=== PATIENT | female | born 1990 | race Caucasian/White ===

== ENCOUNTER 2020-09-19 05:18 | Emergency (ER) | payer MEDICAID, SELFPAY ==
--- NOTE | 2020-09-19 05:20 | CT_ITS ---
STUDY: CT BRAIN WITHOUT CONTRAST REASON FOR EXAM: Female, 30 years old. ? SEIZURE LIKE ACTIVITY, anxiety, making strange faces. RADIATION DOSAGE (If Supplied By Facility): CTDIvol = ( 44.99 ) mGy, DLP = ( 779.24 ) mGycm TECHNIQUE: Transaxial CT imaging of the brain was performed without administration of intravenous contrast material. Individualized dose optimization techniques were used for this CT. COMPARISON: No relevant priors. FINDINGS: Normal soft tissue structures. Normal calvarium. Normal size ventricles and extra-axial spaces for the patient''s age. Normal white matter tracts of the cerebral hemispheres. Normal basal ganglia and thalami. Normal brainstem. Normal cerebellum. There is no intracranial hemorrhage. There are no findings of an acute ischemic infarction. There is mucoperiosteal inflammatory disease of the paranasal sinuses consistent with moderate chronic bilateral maxillary sinusitis. CT/Brain/Head without Contrast IMPRESSION: No acute intracranial abnormality. Electronically Signed: Tatiana Jean MD at 6:28 EST Tel , Service support ,
[2020-09-19 05:23] VITALS: BP 120/96; PULSE 135; RESP 26; TEMP 37; O2SAT 99; BMI 24.1
--- NOTE | 2020-09-19 05:23 | ED.DCSUM_ITS ---
History of Present Illness Chief Complaint: Anxiety Informant: Patient Onset: Weeks Context: Gradual Onset Timing: Intermittent Current Severity: Moderate Maximum Severity: Moderate Narrative: The patient is a 23-year-old female medical history significant for homocystinuria status post nephrectomy who presents to the emergency department concerned she may be having seizures. The patient states she has been under a lot of stress lately. She states for the past year, she has had these episodes with stress were she has been told she may be having seizures. She states that she has blown it off until tonight. She is currently at the [employer]. Her witnessed her leg shaking and she was making strange faces. There was no tonic-clonic motion. She had no tongue biting or urinary incontinence. Patient does states she has a history of prior drug abuse. She states she has been clean for about 3 months. There is a family history of seizure. She has never been evaluated by neurology. Prior similar symptoms: Yes Recent Illness/Hospitalization: No Past Medical History - Allergies and Home Meds Allergies/Adverse Reactions: Allergies citalopram [From Celexa] Allergy (Verified 09/19/20 05:22) Shortness of breath promethazine [From Phenergan] Allergy (Verified 09/19/20 05:22) NEEDS FOLLOW-UP tamsulosin [From Flomax] Allergy (Verified 09/19/20 05:22) Hives ciprofloxacin Adverse Reaction (Verified 09/19/20 05:22) Rash IV FORM TAPE Allergy (Uncoded 09/19/20 05:22) Hives Primary Care Physician: Care Physician,No Primary [Primary Care Provider] - Prior records reviewed: Yes Past Medical History: - - Homocystinuria Surgical History: - - Nephrectomy Review of Systems General: Denies: Chills, Fever, Sweats Eyes: Denies: Visual changes - bilaterally, Diplopia ENT: Denies: Rhinorrhea, Sore throat Cardiovascular: Denies: Chest pain, Palpitations Respiratory: Denies: Dyspnea, Cough, Dyspnea on exertion Gastrointestinal: Denies: Abdominal pain, Nausea, Vomiting, Diarrhea, Melena, Hematochezia Genitourinary: Denies: Dysuria, Hematuria, Frequency Musculoskeletal: Denies: Back pain, Extremity Pain Skin: Denies: Rash, Wounds Neurological: Denies: Headache, Weakness, Numbness Physical Exam Inital Vital Signs reviewed: Yes General: Well nourished, Well developed, No Acute Distress Head: Normocephalic, Atraumatic Eyes: Perrl, EOMI ENT: Moist mucous membranes, No rhinorrhea Neck: Supple, Nontender Cardiovascular: Regular rate, Regular rhythm, No murmurs Respiratory: No distress, CTA bilaterally, Chest nontender Abdomen: Soft, Nontender, Nondistended, Normal bowel sounds Back: Nontender, Normal Inspection Extremities: Nontender, No edema Skin: Normal color, No rash Neurological: Alert, Oriented x3, Cranial nerves II-XII grossly intact, Normal Strength, Normal Sensation Psychological: Normal affect, Normal Mood Diagnostic/Tx/Re-eval Abnormal Lab Results 09/19/20 09/19/20 09/19/20 05:40 05:40 05:40 WBC 11.5 H RBC 4.49 Hgb 13.6 Hct 42.7 MCV 95.1 MCH 30.3 MCHC 31.9 L RDW Std Deviation 45.2 H RDW Coeff of Dinorah 12.9 Plt Count 231 MPV 10.1 Immature Gran % (Auto) 0.300 Neut % (Auto) 59.7 Lymph % (Auto) 28.4 [place] % (Auto) 9.2 Eos % (Auto) 2.1 Baso % (Auto) 0.3 Absolute Neuts (auto) 6.9 Absolute Lymphs (auto) 3.26 Nucleated RBC % 0 Sodium 140 Potassium 3.5 Chloride 106 Carbon Dioxide 30.0 Anion Gap 4 L BUN 15 Creatinine 1.00 Estim Creat Clear Calc 79.99 Est GFR (MDRD) Af Amer 88 Est GFR (MDRD) Non-Af 73 BUN/Creatinine Ratio 15.0 Glucose 82 Calcium 8.4 L Total Bilirubin 0.40 AST 52 H ALT 82 H Alkaline Phosphatase 113 Total Protein 8.0 Albumin 4.0 Globulin 4.0 Albumin/Globulin Ratio 1.0 Urine Color Urine Clarity Urine pH Ur Specific Desha Urine Protein Urine Glucose (UA) Urine Ketones Urine Occult Blood Urine Nitrite Urine Bilirubin Urine Urobilinogen Ur Leukocyte Esterase Urine RBC Urine WBC Ur Squamous Epith Cells Urine Bacteria Urine Mucus Urine Test Ur Drug Screen Comment Ethyl Alcohol < 3.0 09/19/20 09/19/20 05:40 05:40 WBC RBC Hgb Hct MCV MCH MCHC RDW Std Deviation RDW Coeff of Dinorah Plt Count MPV Immature Gran % (Auto) Neut % (Auto) Lymph % (Auto) [place] % (Auto) Eos % (Auto) Baso % (Auto) Absolute Neuts (auto) Absolute Lymphs (auto) Nucleated RBC % Sodium Potassium Chloride Carbon Dioxide Anion Gap BUN Creatinine Estim Creat Clear Calc Est GFR (MDRD) Af Amer Est GFR (MDRD) Non-Af BUN/Creatinine Ratio Glucose Calcium Total Bilirubin AST ALT Alkaline Phosphatase Total Protein Albumin Globulin Albumin/Globulin Ratio Urine Color Yellow Urine Clarity Cloudy Urine pH 6.5 Ur Specific Desha 1.020 Urine Protein 15 H Urine Glucose (UA) Normal Urine Ketones Negative Urine Occult Blood 25 H Urine Nitrite Negative Urine Bilirubin Negative Urine Urobilinogen Normal Ur Leukocyte Esterase 500 H Urine RBC 0-5 SEEN Urine WBC >100 SEEN Ur Squamous Epith Cells 5-10 SEEN Urine Bacteria 4+ Urine Mucus 0 SEEN Urine Test Negative Ur Drug Screen Comment Ethyl Alcohol - Medical Decision Making Patient presents concerned for seizure. She states she has been having these frequent incidents over the past year. She is awake and alert. She does appear to be internally stimulated. She also admits to occasional drug use. Metabolic work-up was pursued. This is relatively unremarkable. Her urine does show evidence of infection and she will be treated with oral antibiotics. Noncontrast head CT was obtained. This was negative for acute process. This does not sound definitively like seizure. I do feel the patient is likely having increasing anxiety and panic attacks, coupled with her substance abuse. I am going to give her outpatient follow-up with the counseling center. Patient will be discharged. Impression 1. UTI 2. Anxiety ED Disposition - Plan for ED Patient: Instructions: ED Anxiety Reaction Prescriptions: Smz/Tmp Ds [Bactrim Ds] 1 tab PO BID #14 tab Prescription Printed hydrOXYzine pamoate capsule [Vistaril] 50 mg PO TID PRN PRN #30 cap PRN Reason: Anxiety Prescription Printed Referrals: [id number] [STAFF PHYSICIAN] -
[2020-09-19] MEDS: 0.9% Normal Saline 1,000 ML 1000 ML IV (05:45)
[2020-09-19 05:52] LABS: Mucous, Urine 0 SEEN /hpf (<or=2+)
[2020-09-19 05:53] LABS: Absolute Lymphocyte Count 3.26 X10^3/uL (0.83-4.51); Absolute Neutrophil Count 6.9 X10^3/uL (2.0-7.7); Basophil# 0.03 X10^3/uL; Basophil% 0.3 % (0-1); Eosinophil# 0.24 X10^3/uL; Eosinophils% 2.1 % (0-5); Hematocrit 42.7 % (37-47); Hemoglobin 13.6 g/dL (12.0-15.0); Lymphocyte # 3.26 X10^3/ul (4.0); Lymphocyte % 28.4 % (19-41); Mean Corp Hgb Conc 31.9 g/dL (32-36); Mean Corpuscular Hgb 30.3 pg (27.0-32.0); Mean Corpuscular Volume 95.1 fL (81-99); Mean Platelet Vol. 10.1 fl (6.2-12.0); Monocyte# 1.06 X10^3/uL; Monocyte% 9.2 % (0-10); NRBC Flagged by Analyzer 0 % (0-5); Neutrophil # 6.87 X10^3/uL (2.7-7.7); Neutrophil % 59.7 % (47-70); Platelet Count 231 K/mm3 (150-450); RBC Distribution Width CV 12.9 % (11.6-14.6); RBC Distribution Width SD 45.2 fl (35.1-43.9); Red Blood Count 4.49 M/mm3 (4.2-5.4); White Blood Count 11.5 K/mm3 (4.4-11.0)
[2020-09-19 05:54] LABS: Color, Urine Yellow (Yellow); Glucose, Dipstick Normal (Normal); Ketone-Dipstick Negative (Negative); Leukocyte Esterase-Dipstick 500 /ul (Negative); Nitrite-Dipstick Negative (Negative); Occult Blood-Urine 25 /ul (Negative); Protein-Dipstick 15 mg/dl (Negative); Urine Bilirubin Dipstick Negative (Negative); Urine Clarity Cloudy (Clear); Urine Urobilinogen Normal (Normal); Urine pH 6.5 (5.0 - 8.0)
[2020-09-19 06:00] LABS: Internal QC Validated? YES +Cl - CLEAR BKGD; Pregnancy, Urine Negative Negative
[2020-09-19 06:01] LABS: Red Blood Cells-Urine 0-5 SEEN /hpf (0-5); White Blood Cells >100 SEEN /hpf (0-5)
[2020-09-19 06:02] LABS: Bacteria 4+ /hpf (None Seen); Squamous Epithelial Cells - UA 5-10 SEEN /hpf (5-10)
[2020-09-19 06:09] LABS: Alcohol, Blood (Medical)-Serum < 3.0 mg/dL
[2020-09-19 06:12] LABS: BUN 15 mg/dL (7-18); EST Glomerular Filtration Rate 73 mL/min (>60); Est Glom Filt Rate - Afr Amer 88 mL/min (>60); Estimated Creatinine Clearance 79.99 ml/min; Glucose 82 mg/dL (74-106)
[2020-09-19 06:13] LABS: AST(SGOT) 52 U/L (15-37); Alanine Aminotransfer ALT/SGPT 82 U/L (13-56); Alkaline Phosphatase 113 U/L (45-117); Anion Gap 4 (5-15); Calcium,Total 8.4 mg/dL (8.5-10.1); Chloride 106 mmol/L (98-107); Potassium 3.5 mmol/L (3.5-5.1); Sodium Level 140 mmol/L (136-145)
[2020-09-19] MEDS: LORazepam 2 MG/ML Syringe 1 MG IV (06:26)
[2020-09-19 06:30] LABS: Amphetamine Urine VISTA NEGATIVE (<1000 ng/mL); Barbiturate Urine VISTA NEGATIVE (< 200 ng/mL); Benzodiazepine Urine VISTA NEGATIVE (< 200 ng/mL); Cocaine Urine VISTA NEGATIVE (< 300 ng/mL); Ecstacy Urine VISTA NEGATIVE (< 500 ng/mL); Methadone Urine VISTA NEGATIVE (< 300 ng/mL); PCP Urine VISTA NEGATIVE (< 25 ng/mL); THC Urine VISTA NEGATIVE (< 50 ng/mL); Vista UDS pH Range 6
[2020-09-19 06:53] VITALS: BP 136/89; PULSE 109; RESP 22; O2SAT 96
== END 2020-09-19 06:56 | disposition home or self-care (01) ==
LOC: ED 06:04
PROVIDERS: Emergency Provider Emergency Medicine
DX: N39.0 Urinary tract infection, site not specified (principal); F41.9 Anxiety disorder, unspecified; E72.11 Homocystinuria; Z88.1 Allergy status to other antibiotic agents; Z88.8 Allergy status to other drugs, medicaments and biological substances; Z90.5 Acquired absence of kidney
CPT/HCPCS: 70450; 80053; 80307; 81001; 81025; 82077; 85025; 96361; 96374; 99285; J7030; A4216